=== PATIENT | female | born 1935 | race Caucasian/White ===

== ENCOUNTER 2024-01-21 10:54 | Day surgery (SDC) | payer OTHER, SELFPAY ==
--- NOTE | 2024-01-20 11:13 | CONSULT.STRU ---
Addendum entered and electronically signed by DANICA العراقي 01/21/24 15:48:
HPI:
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 She presents to the cardiac catheterization lab for evaluation. Echocardiogram from 01/01/2024 is notable for EF 55-60, AV P/m 85/59, DHRUV 0.6, DI 0.18, trace to mild AI, Moderate MAC
with Trace MR, trace to mild TR with RVSP 37. Aortic valve MG at cath was 56mmHg. Patient states she really has not noticed symptoms because of activity limitations r/t arthritis. She states she had bronchitis in the fall and has never fully
recovered feeling SOB more frequently associated with fatigue. Reviewed symptoms of and explained her SOB and fatigue may be r/t her . Discussed the pathophysiology and treatment options of aortic stenosis including SAVR and TAVR. Explained the
evaluation process comprising of CT scan, CT surgical consult, dental clearance, and a heart team discussion. Ms. Newton is unable to recall the name of her dentist at time of consult, she states she will call the CT surgery office to give the team
the dentist's information. TAVR booklet, prescriptions, appointments, and contact information given to patient and her sister. Allowed for and answered questions at bedside.
Original Note:
Consultation
-
Date/Time Consultation Requested: 01/21/2024 1400
Date/Time Consultation Performed: 01/21/2024 1415
Requesting Provider: Harshad Bauer MD
Performing Provider: DANICA العراقي
Reason for Consultation: /TAVR
Patient History
Physicians
Family Physician: Karuna Lloyd MD
Outpatient Fire Extinguisher Repairer: Jewel Lara MD
Primary Fire Extinguisher Repairer: Jewel Lara MD
Past Medical History
Past Medical History: CVA/TIA ((R) pontine stroke), HTN and Other (hyperlipidemia, Small vessel disease)
Past Surgical History
Past Surgical History: Appendectomy, Hysterectomy, Tonsilectomy and Other (hernia repair)
Dental History
UTD- has an appt 02/13 (Cannot recall the name of dentist, will call the office with the information)
Family History
Mother: at Age (74) and Cause of (colon cancer)
Father: at Age (72) and Cause of (black lung)
Social History
Alcohol: Occasional
Drug: None
Tobacco: Former Smoker
Personal:
Living: Alone
Employment: Retired (international first officer)
Allergies
Cipro-?hives
Keflex-?hives
Home Medications
Aspirin 81 MG Tablet Delayed Release 1 tablet Orally Once a day
Centrum Silver 50+Women(Multiple Vitamins-Minerals) - Tablet as directed Orally
Colace(Docusate Sodium) 100 MG Capsule 1 capsule as needed Orally Twice a Day
Crestor(Rosuvastatin Calcium) 10 MG Tablet 1 tablet Orally Once a day
Dyazide 37.5-25 MG Capsule 1 capsule in the morning Orally Once a day, Notes: prn
Lisinopril 5 MG Tablet 3 tablets Orally Once a day
Metoprolol Tartrate 100 MG Tablet 0.5 tablet Orally Twice a day
Plavix 75 MG Tablet 1 tablet Orally Once a day
STS%
STS %: 7.08
Review of Systems
-
History Source: Patient
General: Reports Fatigue
HEENT: Reports No Symptoms
Respiratory: Reports CARVALHO
Cardiac: Reports No Symptoms
Abdomen/GI: Reports No Symptoms
: Reports No Symptoms
Musculoskeletal: Reports Joint Pain
Skin: Reports No Symptoms
Neurological: Reports No Symptoms
Vascular: Reports No Symptoms
Physical Exam
Labs
01/13/2024:
HH: 12.9/38.2
Plts: 221K
BUN/Creatinine: 26/1.18
GFR: 45
Diagnostic Studies
Cardiac Catheterization 01/21/2024:
HEMODYNAMIC DATA
AO: 98/60
LV: 165/14
There is a 56 mmHg mean gradient across the aortic valve
CONCLUSIONS
1: Critical aortic stenosis with mean gradient 56 mmHg
2: Single-vessel CAD as described
3. Iliofemoral vessels are suitable for TAVR
4. Recommend medical therapy for CAD and proceed with TAVR evaluation
Echocardiogram 01/01/2024:
FINDINGS
Left Ventricle
Normal left ventricular chamber size. The interventricular septum is
paradoxical with the remaining wall motion normal. The estimated left
ventricular ejection fraction is 55 to 60%. There is E to A wave reversal
suggestive of a grade 1 diastolic filling abnormality
Right Ventricle
Normal right ventricular chamber size. Normal right ventricular systolic
function
Left Atrium
Top normal left atrial size.
Right Atrium
Normal right atrial size
Mitral Valve
Mildly thickened mitral valve that exhibits adequate excursion. Moderate
mitral annular calcification. Trace mitral regurgitation.
Aortic Valve
Focally thickened and calcified aortic valve that exhibits restricted opening.
Trace to mild aortic insufficiency. There is a peak aortic valve gradient of
85 mmHg with a mean gradient of 59 mmHg. The aortic valve area is calculated
0.6 cm2 by continuity. The dimensionless velocity index is 0.18. These
findings are consistent with severe stenosis.
Tricuspid Valve
Normal tricuspid valve. Trace to mild tricuspid regurgitation with right
ventricular systolic pressure estimated at 37 mmHg
Pulmonic Valve
The pulmonic valve is suboptimally visualized. Mild pulmonic insufficiency
Pericardium\\Pleura
No significant pericardial effusion
Aorta
Moderately atherosclerotic aortic root
Other Finding
Grossly intact interatrial septum.
Normal size inferior vena cava that exhibits normal respiratory variation. The
right atrial pressure is estimated at 3 mmHg
MEASUREMENTS (Male / Female) Normal Values
2D ECHO
LV Diastolic Diameter PLAX 3.7 cm 4.2 - 5.9 / 3.9 - 5.3 cm
LV Systolic Diameter PLAX 2.6 cm
IVS Diastolic Thickness 0.8 cm 0.6 - 1.0 / 0.6 - 0.9 cm
LVPW Diastolic Thickness 0.8 cm 0.6 - 1.0 / 0.6 - 0.9 cm
LV Relative Wall Thickness 0.4
RV Internal Dim ED PLAX 2.6 cm
LVOT Diameter 2.0 cm
M-MODE
Aortic Root Diameter MM 2.2 cm
LA Systolic Diameter MM 3.6 cm
LA Ao Ratio MM 1.6
DOPPLER
AV Peak Velocity 459.5 cm/s
AV Peak Gradient 84.5 mmHg
AV Mean Gradient 59.1 mmHg
AV Velocity Time Integral 119.6 cm
AI Peak Velocity 410.3 cm/s
AI Peak Gradient 67.3 mmHg
AI Pressure Half Time 453.1 ms
LVOT Peak Velocity 89.1 cm/s
LVOT Peak Gradient 3.2 mmHg
LVOT Velocity Time Integral 21.5 cm
LVOT Stroke Volume 70.2 cm3
LVOT Stroke Volume Index 36.3 ml/m2 empty
LVOT Cardiac Index 3047.7 cm3/min
AV Area Cont Eq vti 0.6 cm2
AV Area Cont Eq pk 0.6 cm2
Mitral E Point Velocity 108.8 cm/s
Mitral A Point Velocity 151.9 cm/s
Mitral E to A Ratio 0.7
TR Peak Velocity 291.2 cm/s
TR Peak Gradient 33.9 mmHg
Right Ventricular Systolic Press 36.9 mmHg
12/18/2023 EKG:
NSR 88, LBBB
Exam
General: Well Developed, Well Nourished, No Apparent Distress and Comfortable
HEENT: Normocephalic and Moist Mucous Membranes
Neck: Trachea Midline
Respiratory: Clear
Cardiac: Murmur (IV/ EVELYN)
GI: Soft, Non Tender and Non Distended
Rectal: Deferred by Provider
Skin: Warm and Dry
Neuro: Awake, Alert, Oriented and AO x 3
Psych: Calm
Assessment / Plan
-
Aortic Stenosis
Continue TAVR evaluation
Trend Creatinine after contrast administration (Rx given)
TAVR chest CT scan (02/02)
CT surgical consult (02/02 TT)
Frailty testing and KCCQ12 at consult
Continue aspirin and plavix
Dental clearance
Heart team discussion
Data Reviewed
-
EKG: Tracing Personally Visualized and interpreted (NSR LBBB)
Telehealth Case Manager: Report Reviewed by me and Discussed with Physician
Echo: Report Reviewed by me
Labs: Labs Reviewed by me
Old Records: Reviewed (Dr. Bauer and Dr. Lara ov, echocardiogram, EKG)
Total Time Spent with Patient (in minutes): 45
Vital Signs
Vital Signs
Date of Subsequent VS: 01/21/24
Temp: 98.0 F
Pulse: 62
Resp Rate: 16
Blood pressure: 118/88
SaO2: 98
Oxygen Mode of Delivery: Room air
[2024-01-21] VITALS (11 sets, daily range): BP systolic 113–135; BP diastolic 62–89; BMI 32.0
--- NOTE | 2024-01-21 13:02 | ITS.CL.CATH ---
Vice President Of Instruction - Catheterization
Cardiac Catheterization
Procedure Report:
CARDIAC CATHETERIZATION REPORT
Date of Procedure: 01/21/2024
Referring: Jewel Lara MD
Indication: Symptomatic severe aortic stenosis
HEMODYNAMIC DATA
AO: 98/60
LV: 165/14
There is a 56 mmHg mean gradient across the aortic valve
LEFT VENTRICULOGRAPHY: Not done
CORONARY ANGIOGRAPHY
Dominance: Right
Left Main: 30% mid stenosis
LAD: Severely calcified with mild luminal irregularities
Circumflex: Mild luminal irregularities
RCA: The RCA is severely calcified. There is focal 70% distal RCA stenosis just past the crux and 40% ostial stenosis without pressure dampening. The RCA terminates with a large PDA and a large posterolateral system which have minimal luminal
disease
Abdominal aortography with iliofemoral runoff: There is severe calcification of the abdominal aorta without focal stenosis. The iliofemoral vessels are moderately calcified but widely patent bilaterally
Closure Device: None-the procedure was performed via the right radial artery. The Nathaniel's test was normal prior to the procedure.
Radiation (mGy): 171
DAP (cm2.Gy): 16.5
Fluoroscopy time: 4.3 minutes
CONCLUSIONS
1: Critical aortic stenosis with mean gradient 56 mmHg
2: Single-vessel CAD as described
3. Iliofemoral vessels are suitable for TAVR
4. Recommend medical therapy for CAD and proceed with TAVR evaluation
Copy to: Jewel Lara MD, Karuna Lloyd MD
Harshad Bauer MD, [facility], [facility]
[2024-01-21] MEDS: NSS 1000 IV ×2 (14:41)
== END 2024-01-21 17:00 | disposition home or self-care (01) ==
LOC: CATH 10:54
PROVIDERS: ATTENDING PHYSICIAN Internal Medicine Cardiovascular Disease; FAMILY PHYSICIAN Internal Medicine; OTHER PHYSICIAN Internal Medicine Cardiovascular Disease
DX: I35.0 Nonrheumatic aortic (valve) stenosis (principal); I25.10 Atherosclerotic heart disease of native coronary artery without angina pectoris; I25.84 Coronary atherosclerosis due to calcified coronary lesion; I10 Essential (primary) hypertension; E78.5 Hyperlipidemia, unspecified; I44.7 Left bundle-branch block, unspecified; Z86.73 Personal history of transient ischemic attack (TIA), and cerebral infarction without residual deficits; Z79.82 Long term (current) use of aspirin; Z79.02 Long term (current) use of antithrombotics/antiplatelets
CPT/HCPCS: 93005; 93458; C1894; G0278; Q9967

== ENCOUNTER → 2024-02-10 09:05 | Outpatient (REF) | payer OTHER, SELFPAY | LOC: RAD 09:05 | PROVIDERS: ATTENDING PHYSICIAN Nurse Practitioner Acute Care; FAMILY PHYSICIAN Internal Medicine | DX: I35.0 Nonrheumatic aortic (valve) stenosis (principal) | CPT/HCPCS: 75572; Q9967 ==

== ENCOUNTER 2024-05-26 08:02 | Inpatient (IN) | payer OTHER, SELFPAY ==
--- NOTE | 2024-05-18 08:32 | HPS.HSE ---
Family Physician
-
Family Physician: Karuna Lloyd
Chief Complaint
-
Mild CARVALHO and fatigue
History of Present Illness
Ms. Newton is a very active pleasant 89 yof that presents with severe symptomatic aortic stenosis associated with mild CARVALHO and fatigue. Her echocardiogram from 01/01/2024 is notable for an EF 55-60%, AV P/M 85/59, DHRUV 0.6, DI 0.18, Pk nicol 4.59, trace
AI, moderate MAC, trace MR, trace to mild TR, PAP 37. Cardiac catheterization from 01/21/2024 is significant for 30% stenosis of LM, 70% distal RCA stenosis just past the crux and 40% ostial stenosis without pressure dampening. Bilateral iliofemoral
vessels suitable for transfemoral TAVR. Patient has been evaluated for TF TAVR utilizing a 23 mm S3 d/t CAD. Scheduled patient for TAVR 05/26/2024 (at her request). Assessed in preadmission testing and confirmed medication list. Ms. Newton will
continue aspirin and plavix including the morning of TAVR. [facility] at [facility]. Reviewed the risks of the procedure including vascular injury, stroke, and ppm. Informed her that she will get a phone call from
the heart team Thursday before TAVR. Allowed for and answered questions.
Medical History
Past Medical History
Past Medical History: Reports CAD, CVA ((R) pontine stroke), HTN, Valvular Disease (Aortic stenosis) and Other (LBBB, hyperlipidemia, small vessel disease, elevated blood sugar)
Past Surgical History: Reports Gynocological (hysterectomy), Tonsilectomy, Urological (bladder lift) and Other (hernia repair)
Social History
Tobacco: Former Smoker
Alcohol: Occasional
Drug: None
Personal:
Living: Alone
Employment: Retired
Family History
Family History: Cancer
Allergies / Home Medications
Allergies reflects when Allergies were last updated in [facility].
Cipro (rash)
Keflex (rash)
[facility]
Allergy/Medication List:
Aspirin 81 MG Tablet Delayed Release 1 tablet Orally Once a day
Centrum Silver 50+Women(Multiple Vitamins-Minerals) - Tablet as directed Orally
Crestor(Rosuvastatin Calcium) 10 MG Tablet 1 tablet Orally Once a day
Dyazide 37.5-25 MG Capsule 1 capsule in the morning Orally Once a day , Notes to Pharmacist: prn
Lisinopril 5 MG Tablet 3 tablets Orally Once a day
Metoprolol Tartrate 100 MG Tablet 0.5 tablet Orally Twice a day
Plavix(Clopidogrel Bisulfate) 75 MG Tablet 1 tablet Orally Once a day
Review of Systems
-
History Source: Patient
Constitutional: Reports Fatigue (minimal)
EENT: Reports No Symptoms
Respiratory: Reports Other (minimal dyspnea)
Cardiac: Reports No Symptoms
Abdomen/GI: Reports No Symptoms
: Reports No Symptoms
Musculoskeletal: Reports No Symptoms
Skin: Reports No Symptoms
Neurological: Reports No Symptoms
Endocrine: Reports No Symptoms
Hematologic/Lymphatic: Reports No Symptoms
Psych: Reports No Symptoms
Physical Exam
Physical Exam
General: Well Developed, Well Nourished and No Apparent Distress
HEENT: NormoCephalic and Moist mucous membranes
Respiratory: Clear
Cardiac: Regular Rhythm and Murmur (III/ EVELYN)
Breast: Deferred by me
GI: Soft, Non Tender and Non Distended
Rectal: Deferred by Provider
Genito-urinary: Deferred by me
Musculoskeletal: Edema, Left Lower Extremity (Trace) and Edema, Right Lower Extremity (trace)
Skin: Warm and Dry
Neuro: Awake, Alert, Oriented and AO x 3
Psych: Calm
Data Reviewed
-
CT Scan: Report Reviewed by me and Discussed with Physician (TAVR CT reviewed with the heart team)
Medical Tests (Nuc Med, Echo, EKG etc): Report Reviewed by me and Discussed with Physician (echocardiogram and cardiac catheterization reviewed with the heart team)
Lab Data: Labs Reviewed by me
Old Records: Reviewed (Dr. Curtis's office note)
Impression/Plan
-
IMPRESSION/PLAN:
Aortic Stenosis--TF TAVR planned for 05/26/2024 [address] Drs. Curtis and Lizette utilizing a 23 mm S3 via Transfemoral access
Continue aspirin and plavix
POD #1/#30 echo
Cardiac rehab consult
CAD--Stable
Continue medical management: aspirin/plavix/ rosuvastatin/ metoprolol
Hx of Pontine stroke
continue medical management: aspirin/plavix/ rosuvastatin/ metoprolol/ lisinopril
LBBB--will notify EP of TAVR date d/t increased risk for PPM
Lab Results
-
Lab Results
WBC 8.3 10^3/uL (4.8-10.8) 05/18/24 12:39
RBC 4.29 10^6/uL (4.20-5.40) 05/18/24 12:39
Hgb 13.3 g/dL (12.0-16.0) 05/18/24 12:39
Hct 38.2 % (37.0-47.0) 05/18/24 12:39
MCV 89.0 fL (81.0-99.0) 05/18/24 12:39
MCH 31.0 pg (27.0-31.0) 05/18/24 12:39
MCHC 34.8 g/dL (33.0-37.0) 05/18/24 12:39
RDW 12.0 % (11.5-14.5) 05/18/24 12:39
Plt Count 229 10^3/uL (130-400) 05/18/24 12:39
MPV 9.9 fL (7.4-10.4) 05/18/24 12:39
Abs Immat Gran (auto) 0.0 10^3/uL (0-0.05) 05/18/24 12:39
Absolute Neuts (auto) 6.1 10^3/uL (1.4-6.5) 05/18/24 12:39
Absolute Lymphs (auto) 1.7 10^3/uL (1.2-3.4) 05/18/24 12:39
Absolute Monos (auto) 0.5 10^3/uL (0.1-0.6) 05/18/24 12:39
Absolute Eos (auto) 0.1 10^3/uL (0-0.7) 05/18/24 12:39
Absolute Basos (auto) 0.0 10^3/uL (0-0.2) 05/18/24 12:39
Immature Gran % 0.4 % (0-0.5) 05/18/24 12:39
Neutrophils % 73.5 % (42.2-75.2) 05/18/24 12:39
Lymphocytes % 19.8 % (20.5-51.1) L 05/18/24 12:39
Monocytes % 5.6 % (1.7-9.3) 05/18/24 12:39
Eosinophils % 0.6 % (0-6) 05/18/24 12:39
Basophils % 0.1 % (0-2) 05/18/24 12:39
Nucleated RBC % 0 % 05/18/24 12:39
PT 12.9 Sec (11.4-14.6) 05/18/24 12:39
INR 0.97 05/18/24 12:39
APTT 25.6 Sec (23.4-35.0) 05/18/24 12:39
Dsh-Q-Zrtbxnhavor Pept 1570 pg/ml 05/18/24 12:39
Urine Color Yellow 05/18/24 12:31
Urine Clarity Slightly cloudy (Clear) 05/18/24 12:31
Urine pH 5.0 (5.0-9.0) 05/18/24 12:31
Ur Specific Fonda 1.010 (<1.030) 05/18/24 12:31
Urine Ketones Negative (Negative) 05/18/24 12:31
Ur Occult Blood Reflex 2+ (Negative) A 05/18/24 12:31
Urine Nitrite (Reflex) Negative (Negative) 05/18/24 12:31
Urine Bilirubin Negative (Negative) 05/18/24 12:31
Urine Urobilinogen Negative (Neg - 1+) 05/18/24 12:31
Leukocyte Esterase Rfl 2+ (Negative) A 05/18/24 12:31
Urine Glucose Negative (Negative) 05/18/24 12:31
Urine Albumin (Reflex) Trace (Neg - Trace) 05/18/24 12:31
Labs
-
Labs:
WBC 8.3 10^3/uL (4.8-10.8) 05/18/24 12:39
RBC 4.29 10^6/uL (4.20-5.40) 05/18/24 12:39
Hgb 13.3 g/dL (12.0-16.0) 05/18/24 12:39
Hct 38.2 % (37.0-47.0) 05/18/24 12:39
Plt Count 229 10^3/uL (130-400) 05/18/24 12:39
Sodium 136 mmol/L (135-145) 05/18/24 12:39
Potassium 4.7 mmol/L (3.5-5.1) 05/18/24 12:39
Chloride 97 mmol/L (98-107) L 05/18/24 12:39
Carbon Dioxide 25 mmol/L (22-30) 05/18/24 12:39
BUN 24 mg/dl (7-17) H 05/18/24 12:39
Creatinine 1.2 mg/dL (0.6-1.0) H 05/18/24 12:39
eGFR 43.81 05/18/24 12:39
Glucose 105 mg/dl (70-99) H 05/18/24 12:39
Calcium 10.0 mg/dl (8.4-10.2) 05/18/24 12:39
Zmp-W-Xhrwmccwmlu Pept 1570 pg/ml 05/18/24 12:39
Albumin 4.9 g/dl (3.5-5.0) 05/18/24 12:39
[2024-05-18 12:14] VITALS: BMI 33.7
[2024-05-18 13:02] LABS: % Basophils 0.1 % (0-2); % Eosinophils 0.6 % (0-6); % Immature Granulocytes 0.4 % (0-0.5); % Lymphocytes 19.8 % (20.5-51.1); % Monocytes 5.6 % (1.7-9.3); % Neutrophils 73.5 % (42.2-75.2); Absolute Eosinophils 0.1 10^3/uL (0-0.7); Absolute Lymphocytes 1.7 10^3/uL (1.2-3.4); Absolute Monocytes 0.5 10^3/uL (0.1-0.6); Absolute Neutrophils 6.1 10^3/uL (1.4-6.5); Hematocrit 38.2 % (37.0-47.0); Hemoglobin 13.3 g/dL (12.0-16.0); Mean Corp Hgb Conc. 34.8 g/dL (33.0-37.0); Mean Platelet Volume 9.9 fL (7.4-10.4); Nucleated Red Blood Cells % 0 %; Platelet Count 229 10^3/uL (130-400); Red Blood Cell Count 4.29 10^6/uL (4.20-5.40); White Blood Cell Count 8.3 10^3/uL (4.8-10.8)
[2024-05-18 13:13] LABS: INR 0.97; PT 12.9 Sec (11.4-14.6)
[2024-05-18 13:14] LABS: APTT 25.6 Sec (23.4-35.0)
[2024-05-18 13:41] LABS: NT-proBNP 1570 pg/ml
[2024-05-18 13:45] LABS: Urine Albumin Trace (Neg - Trace); Urine Bilirubin Negative (Negative); Urine Character Slightly Cloudy (Clear); Urine Color Yellow; Urine Glucose Negative (Negative); Urine Ketone Negative (Negative); Urine Leukocyte 2+ (Negative); Urine Nitrite Negative (Negative); Urine Occult Blood 2+ (Negative); Urine Urobilinogen Negative (Neg - 1+)
--- NOTE | 2024-05-18 14:53 | CM ---
CM following for DC planning needs.
Met w/ patient, sister Moon at bedside to provide pre-admission teaching.
Pt. resides alone in a private, split level home. Home has approx. 9 steps to enter living area. Patient is independent at baseline w/ ADLs, mobility with use of a SPC in the community. Pt. has ample supports locally to include children and sister.
Dtr. will plan to stay with her upon DC from temporarily.
Reviewed pre and post op routine.
Soap, shower instructions and TAVR booklet provided.
Discussed post op restrictions to include lifting and driving restrictions.
Reviewed post op MD appointments, Cardiac Rehab and visit from CT Transitional Care RN.
Plan is for TAVR, 05/26
Anticipated DC plan is for home w/ CT Transitional Care RN
CM to follow.
[2024-05-18 15:16] LABS: Urine Squamous Cell 0-2 /LPF (Few)
[2024-05-18 15:17] LABS: Urine Red Blood Cell 0-2 /HPF (0-2)
[2024-05-18 15:18] LABS: Urine White Cell 90-100 /HPF (0-5)
[2024-05-18 15:34] LABS: ALT (SGPT) 21 U/L (0-35); AST (SGOT) 28 U/L (14-36); Albumin 4.9 g/dl (3.5-5.0); Alkaline Phosphatase 60 U/L (38-126); Blood Urea Nitrogen 24 mg/dl (7-17); Carbon Dioxide 25 mmol/L (22-30); Chloride 97 mmol/L (98-107); Direct Bilirubin 0.3 mg/dl (0.0-0.4); Estimated Creatinine Clearance 32 ml/min; Glucose 105 mg/dl (70-99); Potassium 4.7 mmol/L (3.5-5.1); Sodium 136 mmol/L (135-145); Total Bilirubin 0.9 mg/dl (0.2-1.3); Total Protein 7.5 g/dl (6.3-8.2); eGFR 43.81
[2024-05-19 08:34] LABS: Glycohemoglobin (HgbA1c) 5.9 % (4.0-5.6)
[2024-05-26] VITALS (30 sets, daily range): BP systolic 107–162; BP diastolic 49–90; BMI 32.6
--- NOTE | 2024-05-26 09:13 | CM ---
Patient planned for OR today for TAVR.
CM to follow for DC planning needs. Antic. home w/ CT Transitional Care RN.
[2024-05-26] MEDS: ANCEF 60 MG IV (09:19)
[2024-05-26] MEDS: LOPRESSOR 5 MG IV (09:26)
--- NOTE | 2024-05-26 09:34 | W.CVOR.SURPR ---
CVOR Surgeon Immed Pre Op
-
I have examined this patient prior to performance of the scheduled procedure.
The patient's condition is unchanged from the time of the dictated/written History and
Physical and the patient is able to undergo the scheduled procedure.
Paroxysmal vs new onset AF with RVR, asyptomatic. MDT discussion with Core TAVR team with consensus to proceed with TF TAVR per usual protocol under conscious sedation.
[2024-05-26 10:56] LABS: ACT-LR - POC 282 Seconds (116-155)
--- NOTE | 2024-05-26 11:11 | W.PN.CT.SURG ---
CT Surgery Operative Note
-
OPERATIVE REPORT
Preoperative Diagnosis: Severe aortic valve stenosis, symptomatic
Postoperative Diagnosis: Same
Procedure(s) Performed: Right trans femoral TAVR with a 23mm Lawson TAVR valve
Date of Procedure: 05/26/2024
Comorbidities:
1. Severe aortic stenosis, symptomatic
2. New onset atrial fibrillation
3. Hypertension
4. Hyperlipidemia
5. History of pontine stroke
6. Cataracts
Cardiac Surgeon: Eugene Curtis MD, MS
Infrastructure Technician: Dwayne Bauer MD
Anesthesia: Conscious Sedation and Local Analgesia
EBL: 100cc
Products: none
Implant: 23 mm Lawson TAVR valve, SN: [id number]
Indication(s) for Procedures: 89-year-old female with symptomatic severe aortic stenosis. CT-TAVR protocol revealed acceptable anatomy for TAVR access and implantation.
Start time: 1028hrs
Deployment time: 1054hrs
End time: 1111hrs
Radiation Dose (mGy): 99.00
DAP (cm2.Gy): 10.6845
Fluoroscopy time (minutes): 5.7
Contrast volume (ml): 38
TAVR gradient (mmHg): 8mmHg
Heparin Dose: 6000units
Protamine Dose: 30mg
Final Valve Positionin/15
Findings: Preoperative LVEF was 65% and was 65% following TAVR without inotropic support. Function was overall normal without regional wall motion abnormalities or dyskinesia. The aortic valve was well seated with trace detectable PVL and mean
gradient across the new valve was 8mmHg. Of note, the patient was in A-fib with RVR prior to the procedure within self converted to normal sinus rhythm while on the [employer] table being prepped. Following deployment of the valve, she was in sinus
with multiple PVCs which appeared to improve. There was successful placement of 23 mm TAVR valve without acute complications. The transvenous pacing wire was not left in place. An LVEDP was measured and found to be 20 mmHg.
Access:
1. Device -right common femoral artery, perclose x 2 + 8Fr angioseal
2. Pigtail -left radial plus TR band
3. Transvenous Pacer -left common femoral vein
Description of Procedure: The patient was taken to the dock or pier laborer. Their identity and procedure to be performed were verified and they were positioned supine on the dock or pier laborer table. Induction via conscious sedation. The patient was then prepped and
draped from chin to thigh in a sterile fashion. A preoperative time-out was performed with all members of the team present. Arterial and venous access was performed using fluoroscopy with micropuncture and Seldinger technique. We opted to use the
left radial artery for pigtail access Two perclose devices were used on the device side followed by access to the aorta with a stiff wire to facilitate E-sheath placement. Heparin was given. A stiff straight wire and AL-1 catheter was used to cross
the aortic valve. An LVEDP was measured here. The stiff wire was exchanged for an extra stiff coiled tip wire. The valve was prepped and mounted on to the device carrier. An ACT of >250 was achieved. We verified x 3 that the valve was mounted in
the correct orientation with the skirt of the valve directed toward the tip of the device carrier. We advanced the device into the descending thoracic aorta where the valve was them mounted onto the balloon under fluoroscopy. The device was flexed
and advanced over the arch into the root and positioned across the aortic valve. Contrast fluoroscopy was used to visualize the prosthesis across the valve and to guide positioning. A pigtail catheter in the RCC as used as a guide. We aimed to have
the bottom of the device marker at the annular hinge point. The device sheath was pulled back. We performed a quick pre-deployment time out. The pacer was turned on and had capture. Blood pressure fell accordingly, angiography was done to verify the
intended final placement and the valve was deployed with 5 seconds of rapid pacing to nominal volume. The balloon was deflated and the pacer was turned off. We had recovery of vitals. The device carrier was unflexed and positioned back in the
descending thoracic aorta. A transthoracic echocardiogram was performed. The device was removed from the E-Sheath maintaining wire access followed by removal of the E-sheath as we cinched down the perclose devices. There was acceptable hemostasis.
There were excellent palpable distal femoral pulses as well as a dopplerable DP signal in the foot after deployment of the Angio-Seal. A completion angiogram was not performed. There was acceptable hemostasis of bilateral groins and manual pressure
was held following wire removal. A TR band was applied to the left radial access site. Low dose protamine was administered after checking another ACT.
All instrument, sponge, and needle counts were confirmed to be correct x 2 at the end of the operation. The patient was transferred to the cardiac intensive care unit in stable condition.
I, Dr. Eugene Curtis, was present, scrubbed for, and performed all critical elements of this procedure.
Eugene Curtis MD
Cardiothoracic Surgeon
[facility]
This operative dictation was created using the [employer] dictation system. Please excuse any grammatical, typographical, or 'sound alike' errors
--- NOTE | 2024-05-26 11:21 | W.PN.UPDATE ---
Update Note
Progress Note Update
Reviewed Ms. Newton with the heart team in the preTAVR SDM meeting and confirmed a 23mm S3 via right transfemoral access. Patient had new onset a-fib prior to TAVR will start OAC post TAVR and discontinue aspirin and plavix. LVEDP 20mmHg. #23mm S3
(serial# [id number]) successfully deployed via right transfemoral access. Post implant MG 3mmHg.
--- NOTE | 2024-05-26 12:06 | ITS.CL.TAVR ---
Central Sterile Technician - TAVR Report
TAVR PRocedure
Procedure Report:
TRANSCATHETER AORTIC VALVE REPLACEMENT REPORT
�
Date: 05/26/2024
Referring physician: Jewel Lara MD
�
Operators:
dinkey motor operator: Harshad Bauer MD
Cardiac surgeon: Eugene Curtis MD
�
Procedure:
Conscious sedation was provided by anesthesia. Using a micropuncture technique, 6F sheaths were placed in the left radial artery and LFV. A transvenous pacemaker was advanced to the RV and excellent thresholds obtained. A pigtail catheter was
advanced to the aortic root where low volume injections were performed to identify an appropriate angle for valve deployment deployment. Access was then obtained in the right femoral artery using a micropuncture technique. A 6Fsheath was placed and
angiography confirmed a AS400 PROGRAMMER ANALYST puncture site. Heparin 4000 units was administered.��Two perclose sutures were preset using the preclose technique. An 8F sheath was placed in the LFA and an Amplatz super stiff wire advanced into the thoracic aorta. The
ileofemoral vessels were dilated using the Lawson dilator. An Lawson E sheath was advanced into the descending thoracic aorta. Additional heparin 2500 units was administered. The valve was crossed using a diagnostic 6F AL1 catheter and a straight
wire. An Amplatz extra stiff wire with a homemade curve was placed in the LV apex. Balloon aortic valvuloplasty was not performed.
An Lawson 23�mm Lola S3 valve was then advanced through the E sheath and prepared for transit around the aortic arch. The valve was carefully advanced across the aortic annulus and deployed during rapid ventricular pacing. Echocardiography and
aortography confirmed an excellent result. The mean gradient was 8 mmHg with trivial AI. The valve deployment system was removed. The Lawson E sheath was then removed and hemostasis obtained with the two perclose sutures and an 8 Setswana
Angio-Seal. ��The pacemaker was removed and the LFV sheath secured in position. The pacemaker and LFV sheath were removed and manual compression used for hemostasis. An R band was placed at the left radial access site.
�
Radiation (mGy): 245
DAP (cm2.Gy)): 17.7
Fluoroscopy time: 6.2 minutes
�
Conclusions: Successful placement of�23�mm Lola S3 aortic valve via right transfemoral approach with no acute complications. Of note, in the recovery room prior to the procedure the patient developed AF with VR 145. She was asymptomatic and
unaware of this rhythm. Given metoprolol 5mg IV with HR dropping to 120s. She was then taken into warehouse laborer for the procedure. Diltiazem 10mg IV bolus then 10mg/hr infusion started. After 15 min (and before start of TAVR procedure) she converted to
NSR. Given a CHADS-2 vasc score of 5 (age (4), sex, HTN, heart disease) we will begin OAT and stop ASA and Plavix
�
Copy: Jewel Lara MD, Karuna Lloyd MD
�
--- NOTE | 2024-05-26 14:38 | PTCARENOTE ---
Received pt post TAVR. Pt AAO x3, VSS. B/L groin sites w/ dressings clean and intact. Left radial band intact w/ 10 ml of air. Neuro checks per MD order. Pt c/o mild back pain rated 4 out of 10 on pain scale. Will monitor.
[2024-05-26] MEDS: ANCEF 5 IV (16:50)
[2024-05-26] MEDS: ANCEF 10 IV (16:52)
[2024-05-26] MEDS: ZESTRIL 5 MG PO (17:13)
--- NOTE | 2024-05-26 18:22 | PTCARENOTE ---
Right groin site w/ noted ooze since 1514. Pt continuously lifting her head off of the pillow. Manual pressure applied intermittently. Right groin dressing changed. Will monitor.
[2024-05-26] MEDS: COLACE PO ×2 (19:34→19:40)
[2024-05-26] MEDS: LOPRESSOR 50 MG PO (19:34)
[2024-05-26] MEDS: CRESTOR 10 MG PO (22:51)
[2024-05-27] VITALS (12 sets, daily range): BP systolic 129–165; BP diastolic 55–103; PULSE 68; O2SAT 64–98; BMI 31.8
--- NOTE | 2024-05-27 02:03 | PTCARENOTE ---
Rec'd pt at 1900. Pt on TELE monitor in NSR with a BBB, occasional PAC's and occasional PVC's. Pt with VSS, and AAOx3. Pt post TVAR with bilateral femoral dressings CDI and left radial site also CDI. Pt verbalized understanding of extremity
restrictions and femoral/radial site monitoring. Pt denies any pain. Pt resting with call lee in reach.
[2024-05-27 03:25] LABS: Hematocrit 34.4 % (37.0-47.0); Mean Corp Hgb Conc. 34.9 g/dL (33.0-37.0); Mean Corpuscular Hgb 30.9 pg (27.0-31.0); Mean Corpuscular Volume 88.7 fL (81.0-99.0); Mean Platelet Volume 10.3 fL (7.4-10.4); Platelet Count 222 10^3/uL (130-400); Red Blood Cell Count 3.88 10^6/uL (4.20-5.40); White Blood Cell Count 11.1 10^3/uL (4.8-10.8)
--- NOTE | 2024-05-27 03:31 | PTCARENOTE ---
Pt. wandered out to nurse's station confused. Stated she just woke up and forgot where she was. Easily reoriented to place and time, no change to neuro assessment. Bed alarm placed for safety. JO ANN Prescott notified.
[2024-05-27 03:44] LABS: Blood Urea Nitrogen 18 mg/dl (7-17); Calcium 9.9 mg/dl (8.4-10.2); Carbon Dioxide 23 mmol/L (22-30); Chloride 101 mmol/L (98-107); Estimated Creatinine Clearance 43 ml/min; Glucose 114 mg/dl (70-99); Potassium 4.2 mmol/L (3.5-5.1); Sodium 136 mmol/L (135-145); eGFR > 60.00
--- NOTE | 2024-05-27 06:17 | W.PN.CT ---
Today's Communication / Plan
-
-pod #1
-no issues overnight
-pre-existing LBBB, new onset a-fib with RVR prior to TAVR
-in nsr overnight. No brooke or pauses, no further afib
-Echo today
-current meds (Lopressor, Zestril, Crestor). on ASA and Plavix preop - ? Eliquis postop for paf
-enocourage IS, OOB
Assessment / Plan
-
- Severe symptomatic aortic valve stenosis- s/p Right trans femoral TAVR with a 23mm Lawson TAVR valve on 05/26/24, pod #1
- Intraop TTE: LVEF was 65% pre and post TAVR without inotropic support, no wma or dyskinesia. The aortic valve was well seated with trace detectable PVL and mean gradient across the new valve was 8mmHg.
- LVEDP was measured and found to be 20 mmHg.
- New onset A-fib with RVR prior to the procedure- self converted to normal sinus rhythm while on the Slubber [employer]ender table being prepped.
- New onset atrial fibrillation
- Hypertension
- Hyperlipidemia
- Prediabetes (HgA1c 5.9)
- History of pontine stroke with slurred speech
- Cataracts
- Umbilical hernia repair
- Hysterectomy
- Tonsillectomy
- Pre-existing LBBB
Discussed patient care with: Nursing and Care Team
Subjective
Procedure
- s/p Right trans femoral TAVR with a 23mm Lawson TAVR valve on 05/26/24
-
Date of Service: May 27, 2024
Objective Data
-
Lab Results
05/18/24 12:39
05/18/24 12:39
PT 12.9 Sec (11.4-14.6) 05/18/24 12:39
INR 0.97 05/18/24 12:39
APTT 25.6 Sec (23.4-35.0) 05/18/24 12:39
Vital Signs
Vital Signs
Temp Pulse Resp BP Pulse Ox
98.4 F 66 18 143/79 97
05/26/24 22:49 05/26/24 23:00 05/26/24 22:49 05/26/24 22:49 05/26/24 23:39
CT Intake/Output/Weight
05/26/24 05/26/24 05/27/24
06:59 18:59 06:59
Intake Total 480 / 480
Output Total 800 / 800
Balance -800 / -320 480 / -320
SaO2: 97
Physical Exam
-
General: AOx3
Cardiovascular: Regular rate & rhythm, No Murmurs and No Rub
Respiratory: Decreased Breath Sounds (few rales at bases)
Incision: Other (groins are cdi, soft, nontender, no hematoma b/l)
Extremities: No Edema (DPs by Doppler b/l)
Abdomen: soft, nontender, nondistended, + bowel sounds
Data Reviewed
-
Lab Results: Results Reviewed
Medications: Active Meds Reviewed
Chest X-Ray: Report Reviewed and Image Reviewed
ECG: Report Reviewed and Image Reviewed
[2024-05-27] MEDS: ZESTRIL 10 MG PO (08:35)
[2024-05-27] MEDS: LOPRESSOR 50 MG PO ×2 (08:35→20:10)
[2024-05-27] MEDS: COLACE PO ×2 (08:36→20:10)
--- NOTE | 2024-05-27 09:28 | W.PN.ANS.POP ---
Anesthesia Post Operative
- Anesthesia Post Op Note
Vital Signs Stable-See Nursing Note: Yes
Airway Patent: Yes
Adequate Pain Control: Yes
Change in Mental Status: No
Current Postoperative Nausea & Vomiting: No
Anesthesia Complications: No
General Anesthetic Recall: No
Unplanned Admission: No
Post Op Hydration Adequate: Yes
- -
Pt awake and alert- resting comfortably with no anesthesia c/o at time of post op visit.
[2024-05-27] MEDS: ELIQUIS 5 MG PO ×2 (09:56→20:10)
--- NOTE | 2024-05-27 09:59 | CM ---
Addendum entered by Jeannette Ruiz 05/27/24 14:49:
Telephone call to [facility] to check if they have Eliquis 5 mg po bid in stock. [facility] states they have Eliquis 5 mg po bid in stock.
Original Note:
Reviewed chart. Met with Mrs. Soto to review discharge plans. She states she is feeling weill and maybe able to go home soon. She states prior to admission she resides in a spilt level home without any steps to enter. She states she has four
steps to get to her living room area and then another four steps to get to her bedroom/full bathroom. She states prior to admission she was independent with ambulation with and adls. She states she ambulates with a Single point cane in the
community. She states she has been ambulating here. She states she has a prescription plan and uses [facility]. She states her 23 year old granddaughter will stay with her over the weekend and then her daughter will stay a few more days
the following week. We reviewed a home visit by the Cardiothoracic Transitional Care Nurse. She is agreeable to a home visit. Telephone call to her insurance to check on co-pay for Eliquis 5 mg po bid. Her co-pay for one month supply would be
$47.00 and a 90 day supply mail order would be $94.00. Placed the one month free coupon in her red discharge folder. Medical work-up in progress. The discharge plan is to return home with her granddaughter and daughter staying with her and a home
visit by the Cardiothoracic Transitional Care Nurse when medically stable.
--- NOTE | 2024-05-27 13:47 | PTCARENOTE ---
Pt noted to have a 'butterfly' facial rash. Pt noted that the rash started this morning. Origin of rash is unclear. Pt denies any discomfort. Will monitor.
--- NOTE | 2024-05-27 14:51 | W.PN.CD ---
Today's Communication / Plan
-
Monitor facial rash which is much more likely due to the skanky soap then the Eliquis (she was exposed to both for the first time today). She will get Eliquis tonight to make sure that the rash is not worse. If it is worse after a second dose of
Eliquis then we should switch her to Xarelto.
Impression / Plan
-
Aortic stenosis: She underwent uncomplicated TAVR are yesterday with 23 mm KAI S3 valve. Echo today shows excellent valve position with mean gradient 14 mmHg and no paravalvular leak. She is clinically stable.
Left bundle branch block: This is chronic
A-fib: This is a new diagnosis with onset prior to TAVR yesterday. She will be chronically anticoagulated with Eliquis. She spontaneously converted to normal sinus rhythm after approximately 1 hour in A-fib and before the beginning of the TAVR
procedure.
Rash: She developed a facial rash today after washing her face with some awful hospital soap. I think it is unlikely that this rash represents a reaction to Eliquis which was also started this morning. We will challenge her with a second dose of
Eliquis this evening. I have advised her not to use the nasty soap. Expect discharge tomorrow on Eliquis 5 mg twice daily. Stop aspirin and Plavix.
Physical Exam
Vital Signs/Labs
Vital Signs
Temp Pulse Resp BP Pulse Ox
98.8 F 79 20 129/70 99
05/27/24 11:11 05/27/24 10:00 05/27/24 11:11 05/27/24 08:35 05/27/24 11:11
05/26/24 05/27/24 05/28/24
06:59 06:59 06:59
Actual Weight 173 lb 15.115 oz
05/27/24 02:42
05/27/24 02:42
PT 12.9 Sec (11.4-14.6) 05/18/24 12:39
INR 0.97 05/18/24 12:39
APTT 25.6 Sec (23.4-35.0) 05/18/24 12:39
05/18/24
12:39
Zdr-L-Gxmbydmigzs Pept 1570
Physical Exam
Constitutional: No acute distress
Cardiovascular: Rhythm & rate is regular and Murmur/rub/gallop absent
Respiratory: Respiratory effort normal and Lungs clear to auscul.
GI: Soft and Non tender
Neuro/Psych: AO x 3 and Motor deficits absent
Data Reviewed
-
Date of Service: May 27, 2024
[2024-05-27] MEDS: ZESTRIL 5 MG PO (17:58)
[2024-05-27] MEDS: CRESTOR 10 MG PO (22:09)
--- NOTE | 2024-05-28 00:32 | W.PN.CT ---
Today's Communication / Plan
-
Plan:
-No major issues overnight. Hemodynamically and neurologically intact
-No further rash, cont. Eliquis for preop a-fib, as rash likely d/t hospital soap
-Groins are C/D/I without significant hematoma
-Post TAVR echo yesterday 05/27/24 showed a well seated TAVR with PG/MG of 24/14 mmHg, no AI, LVEF 55-60%, mild MR, mild-mod TR
-Cont. current meds (Eliquis, Crestor, Lisinopril, Lopressor)
-OOB into chair/Ambulate
-D/C home today
Assessment / Plan
-
- Severe symptomatic aortic valve stenosis- s/p Right trans femoral TAVR with a 23mm Lawson TAVR valve on 05/26/24, pod #2
- Intraop TTE: LVEF was 65% pre and post TAVR without inotropic support, no wma or dyskinesia. The aortic valve was well seated with trace detectable PVL and mean gradient across the new valve was 8mmHg.
- LVEDP was measured and found to be 20 mmHg.
- New onset A-fib with RVR prior to the procedure- self converted to normal sinus rhythm while on the Supervisor Packing table being prepped.
- New onset atrial fibrillation prior to TAVR
- Hypertension
- Hyperlipidemia
- Prediabetes (HgA1c 5.9)
- History of pontine stroke with slurred speech
- Cataracts
- Umbilical hernia repair
- Hysterectomy
- Tonsillectomy
- Pre-existing LBBB
-Acute postop blood loss/Anemia (stable without transfusion)
Discussed patient care with: Cardiology, Nursing, Respiratory Therapy, Pharmacy and Care Team
Subjective
Procedure
- s/p Right trans femoral TAVR with a 23mm Lawson TAVR valve on 05/26/24
-
Date of Service: May 28, 2024
Pt offers no complaints, rash has resolved
Objective Data
-
Lab Results
05/27/24 02:42
05/27/24 02:42
PT 12.9 Sec (11.4-14.6) 05/18/24 12:39
INR 0.97 05/18/24 12:39
APTT 25.6 Sec (23.4-35.0) 05/18/24 12:39
Vital Signs
Vital Signs
Temp Pulse Resp BP Pulse Ox
97.9 F 59 18 129/73 96
05/27/24 22:08 05/28/24 00:00 05/27/24 22:08 05/27/24 22:08 05/27/24 22:08
CT Intake/Output/Weight
05/27/24 05/27/24 05/28/24
06:59 18:59 06:59
Intake Total 480 / 480
Balance 480 / -320
SaO2: 96 (RA)
Physical Exam
-
General: Awake, Oriented and AOx3
Cardiovascular: Regular rate & rhythm, No Murmurs, No Rub and No Gallop
Respiratory: Clear
Incision: Clean, Dry, Intact and Dressing Intact
Extremities: No Edema
Data Reviewed
-
Lab Results: Results Reviewed
Medications: Active Meds Reviewed
Chest X-Ray: Report Reviewed and Image Reviewed
ECG: Report Reviewed and Image Reviewed
[2024-05-28 03:09] VITALS: BMI 32.0
[2024-05-28 03:12] VITALS: BP 157/74
--- NOTE | 2024-05-28 03:32 | PTCARENOTE ---
Received patient at shift report. 2000 Eliquis given, no changes in facial rash noted. Bed alarm in place, patient forgetful overnight but pleasant. Bilateral groin dressings intact. Plan of care discussed, patient verbalized understanding.
[2024-05-28 06:45] VITALS: BP 140/52
--- NOTE | 2024-05-28 08:07 | W.PN.CD ---
Today's Communication / Plan
-
overall appears stable for discharge
continue Eliquis
Impression / Plan
-
Aortic stenosis: She underwent uncomplicated TAVR 05/26/24 with 23 mm KAI S3 valve.
- - cath sites stable
- echo stable
Left bundle branch block: This is chronic
A-fib: This is a new diagnosis with onset prior to TAVR yesterday. She will be chronically anticoagulated with Eliquis. She spontaneously converted to normal sinus rhythm after approximately 1 hour in A-fib and before the beginning of the TAVR
procedure.
- remainsin sinus
- contue Eliquis
Rash: She developed a facial rash today after washing her face with some hospital soap. Now resolved. Not related to Eliquis
Physical Exam
Vital Signs/Labs
Vital Signs
Temp Pulse Resp BP Pulse Ox
98.1 F 59 16 140/52 96
05/28/24 06:42 05/28/24 07:00 05/28/24 06:42 05/28/24 06:45 05/28/24 06:56
05/27/24 05/28/24 05/29/24
06:59 06:59 06:59
Actual Weight 78.9 kg 79.4 kg
05/27/24 02:42
05/27/24 02:42
PT 12.9 Sec (11.4-14.6) 05/18/24 12:39
INR 0.97 05/18/24 12:39
APTT 25.6 Sec (23.4-35.0) 05/18/24 12:39
05/18/24
12:39
Wrq-A-Mrsqoiptaqp Pept 1570
Physical Exam
Constitutional: No acute distress
Cardiovascular: Rhythm & rate is regular
Respiratory: Lungs clear to auscul.
GI: Soft
Other: Cath Site
fine bilat
Data Reviewed
-
Date of Service: May 28, 2024
Medical Decision Making: Reviewed Test Results
EKG: Report Reviewed by me
Medical Tests (PFT, Pathology etc): Report Reviewed by me
Labs: Labs Reviewed by me
[2024-05-28] MEDS: ZESTRIL 10 MG PO (08:41)
[2024-05-28] MEDS: LOPRESSOR 50 MG PO (08:41)
[2024-05-28] MEDS: ELIQUIS 5 MG PO (08:41)
[2024-05-28] MEDS: COLACE 100 MG PO (08:41)
--- NOTE | 2024-05-28 08:47 | W.DCSUMMARY ---
Discharge Summary
Discharge Data
Date of Admission: 05/26/24
Date of Discharge: 05/28/24
-
Pending Results: No
Hospital Course
Patient is a 89-year-old female admitted for transfemoral TAVR. She was mated on the morning of 05/26/2024 and later that morning was brought to the cardiac [facility] where she underwent right transfemoral TAVR with Dr. Eugene Curtis. She tolerated
procedure well. Prior to entering the [facility] she had a episode of rapid A-fib which was treated with IV Cardizem and Cardizem drip was discontinued postprocedure in the recovery room and she has maintained sinus rhythm. Her first night in the
interventional care unit was uneventful. The following day she was started on Eliquis and her aspirin and Plavix were discontinued. Later in the afternoon. She may have developed a erythematous facial rash and her discharge was canceled.
Postoperative day #2 she was hemodynamically stable her rash appeared to have resolved and was not related to the Eliquis. Eliquis was continued and she was able to be discharged on the morning of 05/28/2024. Her postprocedure echo showed a peak
and mean gradients of 24 and 14. There was no AI.
She was given a full set of discharge instructions and will have a follow-up echo in 30 days.
Discharge Plan
-
Patient Disposition: Home (Routine Discharge)
Discharge Diagnosis/Procedures: TF TAVR
Condition: Fair
Diet: Low Fat, Low Cholesterol and 2 Gram Sodium
Activity: As tolerated
Driving Restrictions: No driving for 1 week
Bathing Restrictions: OK to Shower
Others Tests: 30-day follow up echocardiogram: 06/28/2024 @ 12:[address] Wilder's office
Other Services: Cardiac Rehab
Wound Care: NO lotions, powders, or creams to the puncture sites
Specialty Instructions: Weigh Daily- Call MD for wt gain/loss 3 lbs overnight/5 lbs in 1 week
Activity Restrictions/Additional Instructions:
Please call to make appointments fo [facility] Cardiac Rehab:
1. [facility] [place]: [phone]
2. [place]: [phone]
Referrals:
CT Transitional Care Nurse [Outside] - in one to two days
(
The Cardiothoracic Transitional Care Nurse will call you to set up a visit in 1-2 days.)
Jewel Lara MD [Active] - 06/23/24 2:20 pm (Your appointment on June 09, 2024 at 1:20 p.m. has been cancelled. )
Karuna Lloyd MD [Family Provider] - in four to six weeks (Please make an appointment in four to six weeks. )
Additional Discharge Medication Instructions: Stop aspirin,Stop plavix.
New Rx. Eliquis 5mg twice a day
Prescriptions:
New
Eliquis 5 mg Tablet
5 mg PO BID Qty: 60 1RF
Continued
metoprolol tartrate 100 mg Tablet
50 mg PO BID
triamterene-hydrochlorothiazid 37.5-25 mg Capsule
1 cap PO DAILY PRN (Reason: edema)
lisinopril 5 mg Tablet
10 mg PO DAILY
lisinopril 5 mg Tablet
5 mg PO QPM
Centrum Silver Women 8 mg iron-400 mcg-50 mcg Tablet
1 tab PO DAILY
rosuvastatin 10 mg Tablet
10 mg PO HS
docusate sodium [Colace] 100 mg Capsule
100 mg PO PRN PRN (Reason: constipation)
acetaminophen 500 mg Capsule
1,000 mg PO Q6H PRN (Reason: pain)
Discontinued
clopidogrel [Plavix] 75 mg Tablet
75 mg PO DAILY
aspirin 81 mg Tablet,Chewable
81 mg PO DAILY
Discharge Orders:
Discharge Patient (As Directed); Ordered 05/28/24
Ordered By: Miky Beal
Care Plan Goals
Care Plan Goals:
Problem: Readiness for enhanced knowledge related to diagnosis and treatment plan
Goal: Understand your diagnosis and treatment plan needs, including medications if applicable.
Instructions: Know your diagnosis, underlying causes and treatment plan options, including medications if applicable. Consult with your health care team to learn about your diagnosis and treatment plan, including medications if applicable.
Discharge Date and Time
Print Language: POLISH
[2024-05-28 11:50] VITALS: BP 159/135
[2024-05-28 11:57] VITALS: BP 140/83
--- NOTE | 2024-05-28 12:45 | PTCARENOTE ---
Discussed D/C instructions w/pt & pt's granddaughter. Pt's IV line & circular tank cooper D/C'd. Pt left w/personal belongings incl cell phone & wire insulator. Pt escorted out by staff via wheelchair & driven hm by granddaughter who will be staying w/pt for
the next week.
== END 2024-05-28 14:24 | disposition home or self-care (01) | DRG 267 ==
LOC: IVU 08:02
PROVIDERS: Physician Assistant Medical; ADMITTING PHYSICIAN Thoracic Surgery (Cardiothoracic Vascular Surgery); CONSULT PHYSICIAN Internal Medicine Cardiovascular Disease; FAMILY PHYSICIAN Internal Medicine
PROC: 02RF38Z Replacement of Aortic Valve with Zooplastic Tissue, Percutaneous Approach (ICD-10-PCS; 2024-05-26)
DX: I35.0 Nonrheumatic aortic (valve) stenosis (principal); D62 Acute posthemorrhagic anemia; I25.10 Atherosclerotic heart disease of native coronary artery without angina pectoris; I10 Essential (primary) hypertension; E78.5 Hyperlipidemia, unspecified; I44.7 Left bundle-branch block, unspecified; I48.0 Paroxysmal atrial fibrillation; R21 Rash and other nonspecific skin eruption; R73.03 Prediabetes; Z79.02 Long term (current) use of antithrombotics/antiplatelets; Z79.82 Long term (current) use of aspirin; Z86.73 Personal history of transient ischemic attack (TIA), and cerebral infarction without residual deficits; Z87.891 Personal history of nicotine dependence
CPT/HCPCS: 93308; 33361; 36415; 71045; 71046; 80048; 80053; 81003; 81015; 82248; 83036; 83880; 85025; 85027; 85347; 85610; 85730; 86850; 86900; 86901; 86920; 87070; 87086; 93005; 93306; 93321; 93325; C1760; C1769; C1894; Q9967